=== PATIENT | female | born 1960 | race Caucasian/White ===

== ENCOUNTER → 2016-09-29 | Outpatient (CLI) | payer OTHER ==
[~2016-09-29] MED LIST: ACYC-114 PO; GENI30TA2 PO; LEVO100T5 PO; LISI-167 PO
[2016-09-29 14:22] LABS: BLOOD UREA NITROGEN 20 mg/dL (7-18)
[2016-09-29 14:24] LABS: ASPARTATE AMINO TRANSFERASE 19 U/L (15-37)
== END | disposition home or self-care (01) ==
LOC: STAR 12:42
PROVIDERS: ATTEND Orthopaedic Surgery
DX: M18.0 Bilateral primary osteoarthritis of first carpometacarpal joints (principal)
CPT/HCPCS: 36415; 80053

== ENCOUNTER → 2017-03-13 | Outpatient (CLI) | payer OTHER ==
[2017-03-13 15:20] LABS: HEMATOCRIT 47.1 % (34.6-47.8); HEMOGLOBIN 15.9 g/dL (11.7-16.4); WHITE BLOOD COUNT 9.9 x10^3/uL (3.4-10)
[2017-03-13 15:31] LABS: ASPARTATE AMINO TRANSFERASE 16 U/L (15-37); BLOOD UREA NITROGEN 17 mg/dL (7-18)
== END | disposition home or self-care (01) ==
LOC: STAR 14:10
PROVIDERS: ATTEND Neurological Surgery
DX: Z01.818 Encounter for other preprocedural examination (principal); M48.02 Spinal stenosis, cervical region; R79.1 Abnormal coagulation profile
CPT/HCPCS: 36415; 71020; 80053; 85025; 85610; 85730; 93005

== ENCOUNTER → 2017-09-24 | Outpatient (CLI) | payer OTHER ==
[~2017-09-24] MED LIST changes: +METH750T87 PO; +OXYC-302 PO
[2017-09-24 15:34] LABS: ANION GAP 6 mmol/L (5-15); CHLORIDE 105 mmol/L (98-107)
[2017-09-24 15:38] LABS: ALANINE AMINOTRANSFERASE 42 U/L (12-78); ALKALINE PHOSPHATASE 113 U/L (45-117); BILIRUBIN,TOTAL 0.7 mg/dL (0.2-1.0); CREATININE 0.79 mg/dL (0.55-1.02); TOTAL PROTEIN 7.7 g/dL (6.4-8.2)
== END ==
LOC: STAR 14:18
PROVIDERS: ATTEND Orthopaedic Surgery
DX: M18.12 Unilateral primary osteoarthritis of first carpometacarpal joint, left hand (principal)
CPT/HCPCS: 36415; 80053

== ENCOUNTER 2017-09-30 13:04 | Day surgery (SDC) | payer OTHER ==
[~2017-09-30] VITALS: Ht 157.5 cm; Wt 74.1 kg
[2017-09-30] MEDS ORDERED: BUPIVACAINE/PF 0.5% ONE ×2 (13:36→15:29)
[2017-09-30] MEDS ORDERED: BACITRACIN 50,000 UNIT ONE (13:36)
[2017-09-30 13:41] VITALS: BP 108/74
[2017-09-30] MEDS ORDERED: LACTATED RINGERS 1,000 ML IV SCH (13:45)
[2017-09-30] MEDS ORDERED: FENTANYL PF 250 MCG/5ML ONE (14:12)
[2017-09-30] MEDS ORDERED: MIDAZOLAM 1 MG/ML, 2ML ONE (14:12)
[2017-09-30] MEDS ORDERED: PROPOFOL 10 MG/ML, 20ML ONE (14:15)
[2017-09-30] MEDS ORDERED: CEFAZOLIN 1,000 MG ONE (14:16)
[2017-09-30] MEDS ORDERED: EPHEDRINE 50 MG/ML, 1ML IVPush PRN (14:30)
[2017-09-30] MEDS ORDERED: METOPROLOL 1 MG/ML, 5ML IV PRN (14:30)
[2017-09-30] MEDS ORDERED: ALBUTEROL SULFATE 2.5 MG/3 ML NPPB PRN (14:30)
[2017-09-30] MEDS ORDERED: morphine SULFATE 10 MG/ML, 1ML IV PRN (14:30)
[2017-09-30] MEDS ORDERED: LABETALOL 5MG/ML, 20ML IV PRN (14:30)
[2017-09-30] MEDS ORDERED: PROMETHAZINE 25 MG/ML, 1ML IV PRN (14:30)
[2017-09-30] MEDS ORDERED: OXYcodone 5 MG/5 ML ORAL.SOL UDC PO PRN (14:30)
[2017-09-30] MEDS ORDERED: ONDANSETRON 2MG/ML, 2ML IVPush PRN (14:30)
[2017-09-30] MEDS ORDERED: MEPERIDINE/PF 25MG/0.5ML IVPush PRN (14:30)
[2017-09-30] MEDS ORDERED: hydrALAzine 20 MG/ML, 1ML IV PRN (14:30)
[2017-09-30] MEDS ORDERED: ACETAMINOPHEN 325 MG TABLET PO PRN (14:30)
[2017-09-30] MEDS ORDERED: SCOPOLAMINE PATCH, 1.5MG PATCH.TD72 TD ONE ×2 (14:35)
[2017-09-30] MEDS ORDERED: PROPOFOL 10 MG/ML, 50ML ONE (14:43)
[2017-09-30] MEDS ORDERED: ONDANSETRON 2MG/ML, 2ML ONE (15:38)
[2017-09-30] MEDS ORDERED: DEXAMETHASONE 4 MG/ML, 1ML ONE (15:38)
[2017-09-30] MEDS ORDERED: FENTANYL PF 100 MCG/2ML ONE (16:04)
[2017-09-30] MEDS ORDERED: OXYcodone 5 MG/5 ML ORAL.SOL UDC ONE (16:04)
[2017-09-30] MEDS: FENTANYL PF 100 MCG/2ML IV PRN ×2 (16:08→16:16)
[2017-09-30] MEDS ORDERED: MORPHINE SULFATE 4 MG/ML, 1ML ONE (16:14)
[2017-09-30] MEDS ORDERED: DIPHENHYDRAMINE 50 MG/ML, 1ML ONE ×2 (16:20→17:07)
[2017-09-30] MEDS ORDERED: DIPHENHYDRAMINE 50 MG/ML, 1ML IVPush ONE (17:30)
== END 2017-09-30 18:00 | disposition home or self-care (01) ==
LOC: OUT 13:04
PROVIDERS: ATTEND Orthopaedic Surgery
DX: M19.042 Primary osteoarthritis, left hand (principal); I10 Essential (primary) hypertension; E03.9 Hypothyroidism, unspecified; Z87.39 Personal history of other diseases of the musculoskeletal system and connective tissue; Z87.891 Personal history of nicotine dependence; Z88.1 Allergy status to other antibiotic agents; Z88.5 Allergy status to narcotic agent
CPT/HCPCS: 25312; 25447; J0690; J1100; J1200; J2250; J2270; J2405; J2704; J3010; J3490; J7120